=== PATIENT | male | born 1985 | race African-American/Black ===

== ENCOUNTER 2024-03-20 06:17 | Emergency (ER) | payer MEDICAID, OTHER ==
[~2024-03-20] VITALS: Ht 175.3 cm; Wt 83.2 kg
[2024-03-20 08:18] LABS: Rapid Strep A Screen-Throat Negative
[2024-03-20] MEDS ORDERED: ACET500T58 PO (08:44)
[2024-03-20] MEDS ORDERED: LORA10CA PO (08:44)
[2024-03-20] MEDS ORDERED: AZIT4SOL EACHEYE (08:44)
[2024-03-20 09:11] VITALS: BP 127/83; PULSE 82; RESP 18; TEMP 98.9; O2SAT 97
== END 2024-03-20 09:17 | disposition home or self-care (01) ==
LOC: ER 06:17
DX: J02.8 Acute pharyngitis due to other specified organisms (principal); H10.89 Other conjunctivitis
CPT/HCPCS: 87070; 87880; 99283; J7030